=== PATIENT | female | born 1960 | race Caucasian/White ===

== ENCOUNTER 2018-06-15 17:58 | Inpatient (IN) | payer BC ==
[~2018-06-15] VITALS: Ht 177.8 cm; Wt 71.7 kg
[2018-06-15] MEDS ORDERED: AMIODARONE 150 MG in DEXTROSE 5% 100 ML IV ONE ×2 (18:18→20:00)
[2018-06-15] MEDS ORDERED: AMIODARONE 900 MG in DEXTROSE 5% 500 ML IV PRN (18:18)
[2018-06-15] MEDS ORDERED: SODIUM CHLORIDE 0.9% 1,000ML IVBOLUS ONE (18:30)
[2018-06-15 18:32] LABS: BASOPHILS # (AUTO) 0.03 x10^3/uL (0-0.1); BASOPHILS % (AUTO) 0 % (0-1); EOSINOPHILS # (AUTO) 0.01 x10^3/uL (0-0.4); EOSINOPHILS % (AUTO) 0 % (1-7); LYMPHOCYTES # (AUTO) 0.82 x10^3/uL (1-3.4); LYMPHOCYTES % (AUTO) 8 % (22-44); MD NO; MEAN CORPUSCULAR HGB CONC 32.6 g/dL (32.4-35.8); MEAN PLATELET VOLUME 7.6 fL (7.4-10.4); MONOCYTES # (AUTO) 0.71 x10^3/uL (0.2-0.8); MONOCYTES % (AUTO) 7 % (2-9); NEUTROPHILS # (AUTO) 8.81 x10^3/uL (1.8-6.8); NEUTROPHILS % (AUTO) 85 % (42-75); PLATELET COUNT 218 x10^3/uL (130-400); RED BLOOD COUNT 4.14 x10^6/uL (3.82-5.3); RED CELL DISTRIBUTION WIDTH 15.9 % (9.6-15.2)
[2018-06-15 18:42] LABS: ALANINE AMINOTRANSFERASE 47 U/L (12-78); ALBUMIN 2.9 g/dL (3.4-5.0); ANION GAP 11 mmol/L (5-15); CALCIUM 8.8 mg/dL (8.5-10.1); CHLORIDE 110 mmol/L (98-107); CREATININE 1.31 mg/dL (0.55-1.02)
[2018-06-15 18:43] LABS: INTERNATIONAL NORMALIZED RATIO 1.16 (0.93-1.1)
[2018-06-15] MEDS ORDERED: SACU1TAB7 PO (18:44)
[2018-06-15] MEDS ORDERED: IVAB5TAB PO (18:44)
[2018-06-15] MEDS ORDERED: SPIR25TA3 PO (18:44)
[2018-06-15 18:46] LABS: ALKALINE PHOSPHATASE 153 U/L (45-117); BILIRUBIN,TOTAL 0.7 mg/dL (0.2-1.0); TOTAL PROTEIN 5.9 g/dL (6.4-8.2)
[2018-06-15] MEDS: FILTER 0.22 MICRON FOR AMIODARONE IV PRN ×2 (18:46→19:52)
[2018-06-15 18:49] LABS: TROPONIN I 0.512 ng/mL (0.000-0.045)
[2018-06-15] MEDS ORDERED: LEVO88TA2 PO (19:00)
[2018-06-15] MEDS ORDERED: DEXL60CA2 PO (19:00)
[2018-06-15] MEDS ORDERED: PRED5TAB PO (19:00)
[2018-06-15] MEDS ORDERED: DOXY200T2 PO (19:00)
[2018-06-15] MEDS ORDERED: PHENYLEPHRINE 10 MG in SODIUM CHLORIDE 0.9% 249 ML IV PRN (19:30)
[2018-06-15] MEDS ORDERED: MAGNESIUM SULFATE PMX 2GM/50ML 50 ML IVPB ONE (19:30)
[2018-06-15] MEDS ORDERED: ONDANSETRON 2MG/ML, 2ML ONE ×3 (19:43→23:13)
[2018-06-15] MEDS ORDERED: ETOMIDATE 20 MG/10 ML ONE (19:50)
[2018-06-15] MEDS ORDERED: ONDANSETRON 2MG/ML, 2ML IVPush ONE ×2 (20:30→21:30)
[2018-06-15] MEDS ORDERED: ETOMIDATE 20 MG/10 ML IVPush ONE (20:30)
[2018-06-15] MEDS ORDERED: ACETAMINOPHEN 325 MG TABLET PO PRN (22:00)
[2018-06-15] MEDS ORDERED: hydrALAzine 20 MG/ML, 1ML IVPush PRN (22:00)
[2018-06-15] MEDS ORDERED: morphine SULFATE 10 MG/ML, 1ML IVPush PRN (22:00)
[2018-06-15] MEDS ORDERED: POLYETHYLENE GLYCOL 17 GM PACKET PO PRN (22:00)
[2018-06-15] MEDS ORDERED: OXYcodone IR 5MG TABLET PO PRN (22:00)
[2018-06-15] MEDS ORDERED: PROMETHAZINE 25 MG/ML, 1ML IM PRN (22:00)
[2018-06-15] MEDS ORDERED: DOCUSATE 100 MG CAPSULE PO PRN (22:00)
[2018-06-15] MEDS ORDERED: ONDANSETRON ODT 4 MG PO PRN (22:00)
[2018-06-15] MEDS ORDERED: BISACODYL 10 MG SUPP PR PRN (22:00)
[2018-06-15] MEDS ORDERED: MAGNESIUM SULFATE PMX 2GM/50ML 50 ML IV ONE (22:30)
[2018-06-15 22:58] LABS: BASOPHILS # (AUTO) 0.03 x10^3/uL (0-0.1); BASOPHILS % (AUTO) 0 % (0-1); EOSINOPHILS # (AUTO) 0.02 x10^3/uL (0-0.4); EOSINOPHILS % (AUTO) 0 % (1-7); LYMPHOCYTES # (AUTO) 1.64 x10^3/uL (1-3.4); LYMPHOCYTES % (AUTO) 16 % (22-44); MD NO; MEAN CORPUSCULAR HGB CONC 32.6 g/dL (32.4-35.8); MEAN CORPUSCULAR VOLUME 88.8 fL (80-100); MEAN PLATELET VOLUME 7.6 fL (7.4-10.4); MONOCYTES # (AUTO) 0.49 x10^3/uL (0.2-0.8); MONOCYTES % (AUTO) 5 % (2-9); NEUTROPHILS # (AUTO) 8.26 x10^3/uL (1.8-6.8); NEUTROPHILS % (AUTO) 79 % (42-75); PLATELET COUNT 273 x10^3/uL (130-400); RED BLOOD COUNT 4.41 x10^6/uL (3.82-5.3); RED CELL DISTRIBUTION WIDTH 16.6 % (9.6-15.2)
[2018-06-15 23:10] LABS: FREE T4 (FREE THYROXINE) 1.15 ng/dL (0.76-1.46)
[2018-06-15 23:14] LABS: TROPONIN I 0.833 ng/mL (0.000-0.045)
[2018-06-15 23:23] LABS: HEMOGLOBIN A1C 5.5 % (4.2-6.3)
[2018-06-16 00:16] VITALS: BP 89/54
[2018-06-16] MEDS: HEPARIN 5,000 UNITS/ML, 1ML SQ SCH ×3 (00:47→16:00)
[2018-06-16] MEDS: DOXYCYCLINE 100MG TABLET PO SCH ×2 (01:17→09:00)
[2018-06-16] MEDS: PHENYLEPHRINE 20 MG in SODIUM CHLORIDE 0.9% 248 ML IV PRN ×2 (01:48→07:39)
[2018-06-16 04:00] VITALS: BP 93/60
[2018-06-16 06:38] LABS: ALBUMIN 2.9 g/dL (3.4-5.0); ANION GAP 11 mmol/L (5-15); CALCIUM 8.6 mg/dL (8.5-10.1); CHLORIDE 108 mmol/L (98-107)
[2018-06-16 06:46] LABS: ALANINE AMINOTRANSFERASE 892 U/L (12-78); ALKALINE PHOSPHATASE 144 U/L (45-117); CHOLESTEROL, TOTAL 68 mg/dL (140-239); CREATININE 1.48 mg/dL (0.55-1.02); HDL CHOL % 50 % (28-40); HDL CHOLESTEROL (DIRECT) 34 mg/dL (40-60); LDL CHOLESTEROL,CALCULATED 17 mg/dL (54-169); LDL/HDL RATIO 0.5 (0.5-3.0); TOTAL PROTEIN 5.7 g/dL (6.4-8.2); TRIGLYCERIDES 83 mg/dL (50-200); VLDL CHOLESTEROL 17 mg/dL (0-25)
[2018-06-16 06:48] LABS: FREE T4 (FREE THYROXINE) 1.21 ng/dL (0.76-1.46); THYROID STIMULATING HORMONE 2.81 mIU/L (0.358-3.740)
[2018-06-16] MEDS: LEVOTHYROXINE 88 MCG TABLET PO SCH (08:00)
[2018-06-16] MEDS ORDERED: PANTOPROZOLE 40MG TABLET PO SCH (09:00)
[2018-06-16 12:35] LABS: CULTURE INDICATED? YES; MICROSCOPIC INDICATED
[2018-06-16] MEDS: CEFTRIAXONE 1,000 MG in SODIUM CHLORIDE 0.9% 50 ML IV SCH (17:59)
[2018-06-16] MEDS ORDERED: AMIODARONE 900 MG in DEXTROSE 5% 482 ML IV PRN (18:18)
[2018-06-17 04:00] VITALS: BP 90/56
[2018-06-17 05:35] LABS: BASOPHILS # (AUTO) 0.01 x10^3/uL (0-0.1); BASOPHILS % (AUTO) 0 % (0-1); EOSINOPHILS # (AUTO) 0.01 x10^3/uL (0-0.4); EOSINOPHILS % (AUTO) 0 % (1-7); LYMPHOCYTES # (AUTO) 0.98 x10^3/uL (1-3.4); LYMPHOCYTES % (AUTO) 16 % (22-44); MD NO; MEAN CORPUSCULAR HEMOGLOBIN 29.5 pg (27.0-34.8); MEAN CORPUSCULAR VOLUME 89.4 fL (80-100); MEAN PLATELET VOLUME 8.5 fL (7.4-10.4); MONOCYTES # (AUTO) 0.46 x10^3/uL (0.2-0.8); MONOCYTES % (AUTO) 7 % (2-9); NEUTROPHILS # (AUTO) 4.77 x10^3/uL (1.8-6.8); NEUTROPHILS % (AUTO) 77 % (42-75); PLATELET COUNT 181 x10^3/uL (130-400); RED BLOOD COUNT 3.95 x10^6/uL (3.82-5.3); RED CELL DISTRIBUTION WIDTH 16.1 % (9.6-15.2)
[2018-06-17 05:46] LABS: ALBUMIN 2.6 g/dL (3.4-5.0); ANION GAP 7 mmol/L (5-15); CALCIUM 8.3 mg/dL (8.5-10.1); CHLORIDE 109 mmol/L (98-107)
[2018-06-17 05:49] LABS: ALANINE AMINOTRANSFERASE 925 U/L (12-78); ALKALINE PHOSPHATASE 106 U/L (45-117); BILIRUBIN,TOTAL 0.7 mg/dL (0.2-1.0); CREATININE 1.13 mg/dL (0.55-1.02); TOTAL PROTEIN 5.5 g/dL (6.4-8.2)
[2018-06-17] MEDS: LEVOTHYROXINE 88 MCG TABLET PO SCH (06:12)
[2018-06-17] MEDS: HEPARIN 5,000 UNITS/ML, 1ML SQ SCH ×3 (07:56→18:03)
[2018-06-17] MEDS: PANTOPROZOLE 40MG TABLET PO SCH (07:56)
[2018-06-17] MEDS ORDERED: SODIUM CHLORIDE 0.9%, 500ML IVBOLUS ONE (09:30)
[2018-06-17] MEDS: CEFTRIAXONE 1,000 MG in SODIUM CHLORIDE 0.9% 50 ML IV SCH (17:52)
[2018-06-17 20:27] VITALS: BP 98/66
[2018-06-18] MEDS: HEPARIN 5,000 UNITS/ML, 1ML SQ SCH ×2 (01:57→09:04)
[2018-06-18 04:00] VITALS: BP 106/72
[2018-06-18] MEDS: LEVOTHYROXINE 88 MCG TABLET PO SCH (06:38)
[2018-06-18 07:05] VITALS: BP 101/70
[2018-06-18 08:12] LABS: ALANINE AMINOTRANSFERASE 740 U/L (12-78); ALBUMIN 2.9 g/dL (3.4-5.0); ANION GAP 9 mmol/L (5-15); CHLORIDE 111 mmol/L (98-107)
[2018-06-18 08:15] LABS: ALKALINE PHOSPHATASE 104 U/L (45-117); BILIRUBIN,TOTAL 0.6 mg/dL (0.2-1.0); CREATININE 0.97 mg/dL (0.55-1.02); TOTAL PROTEIN 6.1 g/dL (6.4-8.2)
[2018-06-18] MEDS: DOXYCYCLINE 100MG TABLET PO SCH (09:00)
[2018-06-18] MEDS: PANTOPROZOLE 40MG TABLET PO SCH (09:03)
[2018-06-18] MEDS ORDERED: TORS5TAB4 PO (09:23)
[2018-06-18] MEDS ORDERED: NITR100C56 PO (09:23)
[2018-06-18] MEDS ORDERED: CEFD300C37 PO (11:10)
== END 2018-06-18 11:30 | disposition home or self-care (01) | DRG 308 ==
LOC: ED 21:03 → EDIP 21:19 → CCU 23:55 → 5SO 06-17 16:05 → DCLOUNGE 06-18 11:12
PROVIDERS: ADMIT Internal Medicine; ATTEND Internal Medicine
PROC: 5A2204Z Restoration of Cardiac Rhythm, Single (ICD-10-PCS; principal; 2018-06-15)
PROC: 4B02XSZ Measurement of Cardiac Pacemaker, External Approach (ICD-10-PCS; 2018-06-15)
PROC: 02HV33Z Insertion of Infusion Device into Superior Vena Cava, Percutaneous Approach (ICD-10-PCS; 2018-06-15)
PROC: B5181ZA Fluoroscopy of Superior Vena Cava using Low Osmolar Contrast, Guidance (ICD-10-PCS; 2018-06-15)
DX: I47.1 Supraventricular tachycardia (principal); K72.00 Acute and subacute hepatic failure without coma; N17.0 Acute kidney failure with tubular necrosis; R57.0 Cardiogenic shock; E43 Unspecified severe protein-calorie malnutrition; I42.9 Cardiomyopathy, unspecified; I50.22 Chronic systolic (congestive) heart failure; N39.0 Urinary tract infection, site not specified; E03.9 Hypothyroidism, unspecified; Z68.22 Body mass index [BMI] 22.0-22.9, adult; Z88.0 Allergy status to penicillin; E83.42 Hypomagnesemia; I48.91 Unspecified atrial fibrillation; I50.82 Biventricular heart failure; K21.9 Gastro-esophageal reflux disease without esophagitis; M34.9 Systemic sclerosis, unspecified; Z86.79 Personal history of other diseases of the circulatory system; Z87.891 Personal history of nicotine dependence; Z95.810 Presence of automatic (implantable) cardiac defibrillator; I48.92 Unspecified atrial flutter
CPT/HCPCS: 36415; 36556; 71045; 80053; 80061; 81001; 83036; 83735; 83880; 84439; 84443; 84481; 84484; 85025; 85610; 87077; 87081; 87086; 87186; 92960; 93005; 96365; 96366; 96368; 99291; J0696; J1644; J2405; J0282; J2370; J3475; J7030; J7040; J7050; J7060; J7512